=== PATIENT | male | born 1975 | race Native Hawaiian/Other Pacific Islander ===

== ENCOUNTER 2017-09-03 14:48 | Outpatient (CLI) | payer BC | END 2017-09-03 19:27 | disposition home or self-care (01) | LOC: US 14:48 | DX: M79.605 Pain in left leg (principal); R60.0 Localized edema ==

== ENCOUNTER 2021-05-26 12:31 | Outpatient (CLI) | payer BC | END 2021-05-26 23:59 | disposition home or self-care (01) | LOC: RAD 12:31 | PROVIDERS: ATTEND Internal Medicine | DX: M54.5 Low back pain (principal) ==